=== PATIENT | male | born 1970 | race African-American/Black ===

== ENCOUNTER 2016-09-11 22:08 | Emergency (ER) | payer MEDICAID ==
[~2016-09-11] VITALS: Ht 170.2 cm; Wt 79.4 kg
[~2016-09-11 22:08] MED LIST: ACYCLOVIR400 MG PO; ALPRAZOLAM0.5 MG PO; APAP/BUTALBITAL1 TA1 PO; CIPRO 500MG TA500 MG PO; CLARITIN10 MG PO; FLONASE 50 MCG16 GM; KEFLEX 500MG.500 MG PO; LISINOPRIL 20MG20 MG PO; LISINOPRIL30 MG PO; LORTAB 5/500 501 TAB PO; MONTELUKAST SOD10 MG PO; MOTRIN600 MG PO; NAPROSYN 375MG375 MG PO; PERCOCET 10 MG1 EACH PO; PREDNISONE 20MG20 MG PO; PREVACID 30MG C30 M1 OR; SEPTRA DS 800 M1 TAB PO; SULFAMETHOXAZOL1 TA6 PO; TESSALON PERLE100 MG PO; VIBRA-TABS100 MG PO; VIBRAMYCIN 100100 MG PO; VICODIN 5/500 T1 TAB PO; VOLTAREN75 MG PO; ZITHROMAX Z PA250 MG PO; ZOFRAN4 MG PO
--- OUTSIDE RECORDS SUMMARY | 2016-09-11 22:30 | External Medical Summary Rpt ---
Author Author , Organization [employer] Address Unknown Phone Unavailable Care Team Providers Care Military Cook Name Role Phone MANNING VINCE, MANNING Unavailable Unavailable VINCE ARNOLD, ARNOLD Unavailable Unavailable ARNOLD, ARNOLD Unavailable Unavailable ARNOLD JEAN, ARNOLD Unavailable Unavailable JEAN ARNOLD JEAN, ARNOLD Unavailable Unavailable JEAN BEINEKE OSITO, BEINEKE Unavailable Unavailable OSITO DICKENS TER, DICKENS TER Unavailable Unavailable [facility], Unavailable Unavailable [facility] Un[facility] Unavailable [place], [facility] Unavailable Unavailable [place], [facility] BLANCA RUTH, BLANCA Unavailable Unavailable JR RUTH CAMILA HUMBLE, Unavailable Unavailable CAMILA HUMBLE YOVANA, YOVANA Unavailable Unavailable YOVANA JADE, YOVANA Unavailable Unavailable [facility] Un[facility] Un[facility], [facility] Unavailable Unavailable HOSPITAL P, [facility], Unavailable Unavailable [facility] CHYNA JETT, CHYNA JOHNIE Unavailable Unavailable [facility] MENDEZ KYRA, MENDEZ Unavailable Unavailable [facility] KATLIN JR, KATLIN JR Unavailable Unavailable KATLIN JR DWI, KATLIN Unavailable Unavailable JR DWI Osmar Polk MD, Unavailable Unavailable Osmar CLARKE, DAWSON Unavailable Unavailable [facility] Unavailable Unavailable SERVICES, [facility], Un[facility]available [facility], [facility] SCHULSTAD CAM, Unavailable Unavailable [facility] COURTNEY, COURTNEY Unavailable Unavailable [facility] RAFAT IV ALL, Unavailable Unavailable [facility] ALL Purpose Continuity of Care Document - 03-09-2012 through 2016 Problems Code Diagnosis DOS Provider Status R000 TACHYCARDIA 05-20-2016 [facility] UNSPECIFIED INC R002 PALPITATION 05-20-2016 [facility] S [facility] GROUP R079 CHEST PAIN 05-20-2016 [facility] UNSPECIFIED PHYSICIANS GROUP I340 NONRHEUMATI 05-19-2016 [facility] INSUFFICIEN CY I361 NONRHEUMATI 05-19-2016 [facility] TRICUS[facility] INSUFFICIEN CY I371 NONRHEUMATI 05-19-2016 [facility] PULMONARY [facility] INSUFFICIEN CY J069 ACUTE UPPER 05-15-2016 [facility] RESPIRATORY INFECTION UNSPECIFIED M545 LOW BACK 05-15-2016 [facility] PAIN K39778 OTHER LONG 05-14-2016 [facility] CURRENT [place] DRUG THERAPY I10 ESSENTIAL 04-29-2016 [facility] PRIMARY PHYSICIANS HYPERTENSIO GROUP N I119 HYPERTENSIV 04-29-2016 [facility] DISEASE INC WITHOUT HEART FAILURE I209 ANGINA 04-29-2016 [facility] PECTORIS PHYSICIANS UNSPECIFIED GROUP Z8249 FAMILY HX 04-29-2016 [facility] ISCHEMIC PHYSICIANS HRT DZ OTH GROUP DZ CIRC SYSTEM B0089 OTHER 10-11-2015 [facility] P Z302 ENCOUNTER 10-11-2015 [facility] P ON [id number] PAIN IN 06-06-2015 ARNOLD JEAN UNSPECIFIED SHOULDER N6489 OTHER 05-15-2015 [facility] SPECIFIED PHYSICIANS DISORDERS GROUP OF BREAST J209 ACUTE 05-11-2015 [facility] UNSPECIFIED INC J40 BRONCHITIS 05-11-2015 [facility] SPE[facility]IED [facility] ACUTE OR CHRONIC E559 VITAMIN D 05-07-2015 [facility]IENC[facility] PHYSICIANS UNSPECIFIED LA Z0000 ENCOUNTER 05-07-2015 [facility] ADULT [facility]IC[facility] MED EXAM LA W/O ABNORMAL FIND N61 INFLAMMATOR 05-05-2015 ARNOLD JEAN Y DISORDERS OF BREAST R0789 OTHER CHEST 05-02-2015 [facility] L089 LOCAL INF 04-20-2015 ARNOLD JEAN THE SKIN & SUBCUTANEOU S TISSUE UNS 470 DEVIATED 02-05-2015 [facility] NASAL PHYSICIANS SEPTUM GROUP 4739 UNSPECIFIED 02-05-2015 [facility] SINUSITIS PHYSICIANS GROUP 4779 ALLERGIC 02-05-2015 [facility] RHINITIS PHYSICIANS CAUSE GROUP UNSPECIFIED 4730 CHRONIC 01-08-2015 [facility] MAXILLARY PHYSICIANS SINUSITIS GROUP 7840 HEADACHE 01-08-2015 [facility] PHYSICIANS GROUP 67443 OTHER 12-04-2014 [facility] DISEASES OF PHYSICIANS NASAL GROUP CAVITY AND SINUSES 4019 UNSPECIFIED 12-01-2014 [facility]ENTIAL [facility] [place] N 66755 UNSPECIFIED 12-01-2014 [facility]POR[facility] IBULAR JOINT DISORDERS 5259 UNSPECIFIED 12-01-2014 [facility] TEETH&SUPPO INC RTING STRUCTURES V5869 LONG-TERM 10-31-2014 [facility] (CURRENT) PHYSICIANS USE OF LA OTHER MEDICATIONS 7862 COUGH 06-14-2014 [facility] 47979 HEMOPTYSIS 06-14-2014 [facility]PEC[facility]GENCY PHYS 486 PNEUMONIA, 06-13-2014 [facility] UNSPECIFIED INC 4139 OTHER AND 06-08-2014 [facility] UNSPECIFIED [facility] PECTORIS 4871 INFLUENZA 05-03-2014 [facility] WITH OTHER [facility] RESPIRATORY [facility] P MANIFESTATI ONS 78503 FEVER 05-03-2014 [facility] 4659 ACUTE URIS 05-02-2014 ALEXA PENA OF UNSPECIFIED SITE 401.9 401.9 04-01-2013 [facility] 511.0 511.0 04-01-2013 [place] [facility] W/O [facility] OR TB 462 ACUTE 03-09-2012 [facility] Allergies, Adverse Reactions, Alerts Type Allergy to substance Drug Allergy Adverse Reaction to Substance Substance Reaction Severity INGREDIENT: NO KNOWN Unknown Unknown - NO KNOWN DRUG ALLERGY No Known Allergies - Unknown Mild Nka Medications Na ND Rx Da Fi Fi Am Da Di Ph RX Ph St me C No te ll ll ou ys ag ar # ys at rm s nt no ma ic us Or Da si cy ia de te s n re d LI 00 03 04 30 30 00 HO Ac SI 59 -2 -2 .0 00 ME ti NO 10 2- 1- 00 06 TO ve AZ 88 20 20 07 WN IL 50 17 17 34 1 66 PH 30 AR MA MG CY TA OF BL ET CY NT HI AN A AM 00 03 04 30 10 00 HO Ac OX 78 -2 -2 .0 00 ME ti IC 12 2- 1- 00 06 TO ve IL 61 20 20 08 WN LI 30 17 17 37 N 5 02 PH 50 AR 0 MA MG CY CA OF PS UL CY E NT HI AN A NE 61 03 04 10 10 00 HO Ac OM 31 -2 -2 .0 00 ME ti YC 40 2- 1- 00 06 TO ve IN 64 20 20 08 WN -P 61 17 17 37 OL 0 03 PH YM AR YX MA IN CY -H C OF EA R CY SO NT LN HI AN A FL 68 03 04 3. 3 00 HO Ac UC 00 -1 -1 00 00 ME ti ON 10 4- 4- 0 06 TO ve AZ 25 20 20 08 WN OL 20 17 17 32 E 4 27 PH 10 AR 0 MA MG CY TA OF BL ET CY NT HI AN A FL 50 03 04 16 30 00 HO Ac UT 38 -1 -1 .0 00 ME ti IC 30 4- 4- 00 06 TO ve 70 20 20 07 WN ON 01 17 17 00 E 6 05 PH AZ AR OP MA CY 50 OF MC G CY SP NT RA HI Y AN A AL 59 03 04 12 30 00 HO Ac AZ 76 -0 -0 0. 00 ME ti AZ 23 2- 7- 00 04 TO ve OL 72 20 20 0 02 WN AM 20 17 17 09 2 3 15 PH AR MG MA CY TA BL OF ET CY NT HI AN A LI 00 02 03 30 30 00 HO Ac SI 59 -2 -2 .0 00 ME ti NO 10 0- 4- 00 06 TO ve AZ 88 20 20 07 WN IL 50 17 17 34 1 66 PH 30 AR MA MG CY TA OF BL ET CY NT HI AN A AZ 00 02 03 21 6 00 HO Ac ED 60 -0 -1 .0 00 ME ti NI 35 9- 7- 00 06 TO ve SO 33 20 20 08 WN NE 71 17 17 11 5 5 40 PH AR MG MA CY TA BL OF ET CY NT HI AN A AL 59 02 03 12 30 00 HO Ac AZ 76 -0 -1 0. 00 ME ti AZ 23 2- 0- 00 04 TO ve OL 72 20 20 0 02 WN AM 20 17 17 09 2 3 15 PH AR MG MA CY TA BL OF ET CY NT HI AN A FL 50 02 03 16 30 00 HO Ac UT 38 -0 -1 .0 00 ME ti IC 30 2- 0- 00 06 TO ve 70 20 20 07 WN ON 01 17 17 00 E 6 05 PH AZ AR OP MA CY 50 OF MC G CY SP NT RA HI Y AN A AL 59 01 02 12 30 00 HO Ac AZ 76 -0 -1 0. 00 ME ti AZ 23 5- 0- 00 04 TO ve OL 72 20 20 0 02 WN AM 20 17 17 09 2 3 15 PH AR MG MA CY TA BL OF ET CY NT HI AN A CY 00 01 02 90 30 00 HO Ac CL 60 -0 -1 .0 00 ME ti OB 33 5- 0- 00 06 TO ve EN 07 20 20 07 WN ZA 93 17 17 89 AZ 2 30 PH IN AR E MA 10 CY MG OF TA CY BL NT ET HI AN A AM 00 01 02 30 10 00 HO Ac OX 78 -0 -1 .0 00 ME ti IC 12 5- 0- 00 06 TO ve IL 61 20 20 07 WN LI 30 17 17 89 N 5 31 PH 50 AR 0 MA MG CY CA OF PS UL CY E NT HI AN A LI 00 12 01 30 30 00 HO Ac SI 59 -2 -2 .0 00 ME ti NO 10 6- 7- 00 06 TO ve AZ 88 20 20 07 WN IL 50 16 17 34 1 66 PH 30 AR MA MG CY TA OF BL ET CY NT HI AN A AZ 68 12 01 6. 5 00 HO Ac IT 18 -1 -2 00 00 ME ti HR 00 5- 0- 0 06 TO ve OM 16 20 20 07 WN YC 01 16 17 77 IN 3 40 PH AR 25 MA 0 CY MG OF TA BL CY ET NT HI AN A FL 50 12 01 16 30 00 HO Ac UT 38 -2 -2 .0 00 ME ti IC 30 1- 0- 00 06 TO ve 70 20 20 07 WN ON 01 16 17 00 E 6 05 PH AZ AR OP MA CY 50 OF MC G CY SP NT RA HI Y AN A MO 68 12 01 30 30 00 HO Ac NT 00 -2 -2 .0 00 ME ti EL 10 1- 0- 00 06 TO ve UK 24 20 20 07 WN 80 16 17 00 T 3 04 PH SO AR D MA 10 CY MG OF TA CY BL NT ET HI AN A Sa 63 11 0 No li 80 -2 ne 70 2- Lo 10 20 ng Fl 07 13 er us 5 h Ac 10 ti ML ve Sy ri ng e Le 00 11 0 No vo 90 -2 fl 46 2- Lo ox 25 20 ng ac 06 13 er in 1 Ac 50 ti 0M ve G Ta bl et Results Labs Lab Lab Date Result Refere Interp Status Commen Order Detail nces retati t Range on URINALYSIS/COMPLETE (04-01-2013 00:30) URINE 11-22-2 YELLOW YELLOW complet COLOR 013 ed 00:30 URINE 11-22-2 CLEAR CLEAR complet APPEARA 013 ed NCE 00:30 URINE 11-22-2 NEGATIV NEG complet GLUCOSE 013 E ed - 00:30 DIPSTIC K URINE 11-22-2 NEGATIV NEG complet BILIRUB 013 E ed IN - 00:30 DIPSTIC K URINE 11-22-2 NEGATIV NEG complet KETONE 013 E mg/dL ed 00:30 URINE 11-22-2 1.025 1.005-1 complet SPECIFI 013 UNK .030 ed C 00:30 GRAVITY URINE 04-01-2 1+ NEG complet BLOOD 013 ed 00:30 URINE --2 6.0 UNK 5.0-8.5 complet PH 013 ed 00:30 URINE --2 NEGATIV NEG complet PROTEIN 013 E mg/dL ed - 00:30 DIPSTIC K URINE 11--2 0.2 NEG complet UROBILI 013 E.U./dL ed NOGEN - 00:30 DIPSTIC K URINE 04-01-2 NEGATIV NEG complet NITRATE 013 E ed - 00:30 DIPSTIC K URINE 04-01-2 NEGATIV NEG complet LEUK 013 E ed ESTERAS 00:30 E URINE 04-01-2 3-5 0 complet RBC 013 rbc/hpf ed 00:30 URINE 04-01-2 OCC O complet WBC 013 wbc/hpf ed 00:30 URINE --2 OCC OCC complet SQUAMOU 013 #/hpf ed S CELLS 00:30 URINE 04-01-2 TRACE O complet BACTERI 013 ed A 00:30 COMPREHENSIVE METABOLIC PANEL (04-01-2013 00:25) Glucose 04-01-2 105 74-106 complet 013 mg/dL ed Bld-mCn 00:25 c BUN 04-01-2 11 7-18 complet Bld-mCn 013 mg/dL ed c 00:25 Creat 04-01-2 1.2 0.8-1.3 complet SerPl-m 013 mg/dL ed Cnc 00:25 GFR/BSA 04-01-2 66 Greater complet .pred 013 ML/MIN than ed SerPl 00:25 60 Schwart z-vRate Sodium 04-01-2 141 136-145 complet SerPl-s 013 mmoL/L ed Cnc 00:25 Potassi 04-01-2 3.8 3.5-5.1 complet um 013 mmoL/L ed SerPl-s 00:25 Cnc Chlorid 11-22-2 99 98-107 complet e 013 mmoL/L ed SerPl-s 00:25 Cnc CO2 11-22-2 27 21.0-32 complet SerPl-s 013 mmoL/L .0 ed Cnc 00:25 Calcium 11-22-2 9.0 8.5-10. complet 013 mg/dL 1 ed SerPl-m 00:25 Cnc Prot -22-2 7.4 6.4-8.2 complet SerPl-m 013 gm/dL ed Cnc 00:25 Albumin 11-22-2 3.9 3.4-5.0 complet 013 gm/dL ed SerPl-m 00:25 Cnc Globuli 22-2 3.5 1.3-3.2 complet n 013 gm/dL ed Ser-mCn 00:25 c Albumin 22-2 1.1 UNK 1.1-1.8 complet /Glob 013 ed SerPl-m 00:25 Rto Bilirub 22-2 0.4 0.2-1.0 complet 013 mg/dL ed SerPl-m 00:25 Cnc AST 11-22-2 24 U/L 15-37 complet SerPl-c 013 ed Cnc 00:25 ALT -22-2 64 U/L 30-65 complet SerPl-c 013 ed Cnc 00:25 ALP 11-22-2 91 U/L 50-136 complet SerPl-c 013 ed Cnc 00:25 CBC with AUTO DIFF (04-01-2013 00:25) WBC # 11-22-2 10.6 4.8-10. complet Bld 013 K/MM3 8 ed Auto 00:25 RBC # 11-22-2 4.86 4.6-6.2 complet Bld 013 M/mm3 ed Auto 00:25 Hgb -22-2 15.3 14.1-18 complet Bld-mCn 013 g/dL .0 ed c 00:25 Hct Fr 04-01-2 42.9 % 42.0-52 complet Bld 013 .0 ed 00:25 MCV RBC 22-2 88.4 fl 82.2-97 complet 013 .8 ed 00:25 MCH RBC 22-2 31.5 pg 27-31.2 complet Qn 013 ed Auto 00:25 MEAN 11-22-2 35.6 31.8-35 complet CORPUSC 013 g/dl .4 ed ULAR 00:25 HGB CONC RDW RBC 22-2 14.5 % 11.5-17 complet Auto 013 .5 ed 00:25 Platele 11-22-2 238 142-424 complet t Bld 013 K/mm3 ed Ql 00:25 Manual MEAN 1122-2 8.4 fl 7.4-10. complet PLATELE 013 4 ed T 00:25 VOLUME Granulo 11-22-2 46.0 % 37.0-80 complet cytes 013 .0 ed Fr Bld 00:25 Auto LYMPH % 11-22-2 47.7 % 10-50 complet 013 ed 00:25 Monocyt 11-22-2 4.8 % 1.7-9.3 complet es Fr 013 ed Bld 00:25 Auto Eosinop 11-22-2 1.0 % 0.1-12. complet hil Fr 013 0 ed Bld 00:25 Auto Basophi 11-22-2 0.5 % 0.1-2.0 complet ls Fr 013 ed Bld 00:25 Auto Granulo 11-22-2 4.9 1.3-8.0 complet cytes # 013 K/mm3 ed Bld 00:25 Auto Lymphoc 11-22-2 5.0 0.7-4.5 complet ytes Fr 013 K/mm3 ed Bld 00:25 Auto Monocyt 11-22-2 0.5 0.1-1.0 complet es # 013 K/mm3 ed Bld 00:25 Auto Eosinop 11-22-2 0.1 0.0-0.4 complet hil # 013 K/mm3 ed Bld 00:25 Auto Basophi 11-22-2 0.1 0-0.2 complet ls # 013 K/MM3 ed Bld 00:25 Auto Procedures Procedure DOS Code Location Performer Comment ECG 05733 [facility] ECG INC INC W/LEAST 12 LDS TRCG ONLY W/O I&[place] [address] [facility] THYROID 7 [facility] STIMULATI [place] [address] [facility] FREE 7 [facility] THYROXINE INC INC COLLECTIO 42549 [facility] N VENOUS 7 [facility] BLOOD INC INC VENIPUNCT URE CV STRS 94414 [facility] TST 7 [facility] XERS&/OR INC INC RX CONT ECG TRCG ONLY ECHO 28602 [facility] TTHRC R-T 7 [facility] 2D INC INC W/WOM-MOD E COMPL SPEC&COLR D DRUG TST G0477 COMBINED COMBINED PRESUMP;C 7 PHYSICIAN PHYSICIAN PBL BEING S LA S LA READ DC OPT OBV ONLY ECG 93897 [facility] ROUTINE 6 [facility] ECG INC INC W/LEAST 12 LDS TRCG ONLY W/O I&R ECG 33361 [facility] ROUTINE 6 [facility] ECG INC INC W/LEAST 12 LDS TRCG ONLY W/O I&R CREATINE 26571 [facility] KINASE 6 [facility] TOTAL INC INC ECG 53088 [facility] DALAL JR ROUTINE 6 [facility] W/LEAST P 12 LDS I&R ONLY RADIOLOGI 16914 [facility] C EXAM 6 [facility] CHEST 2 INC INC VIEWS FRONTAL&L ATERAL BLOOD 88068 [facility] COUNT 6 [facility] COMPLETE INC INC AUTO&[place] [address] [facility] TROPONIN 6 [facility] QUANTITAT INC INC [place] CREATINE 90775 [facility] KINASE MB 6 [facility] FRACTION INC INC ONLY COMPREHEN 20914 [facility] SIVE 6 [facility] METABOLIC INC INC PANEL DRUG TST G0477 COMBINED COMBINED PRESUMP;C 6 PHYSICIAN PHYSICIAN PBL BEING S LA S LA READ DC OPT OBV ONLY DRUG SCR G0434 COMBINED COMBINED NOT 6 PHYSICIAN PHYSICIAN CHROMATOG S LA S LA RAPHIC; ANY NUMBER PT ENC INJ J0702 ALEXA LIU BETAMETHA 6 JEAN JEAN SONE ACETATE & PHOSPHATE 3 MG IAADI 58819 [facility] INFFLUENZ 6 [facility] A A VIRUS INC INC IAADI 21815 [facility] INFLUENZA 6 [facility] B VIRUS INC INC LIPID 08179 COMBINED COMBINED PANEL 5 PHYSICIAN PHYSICIAN S LA S LA SEDIMENTA 37615 COMBINED COMBINED TION RATE 5 PHYSICIAN PHYSICIAN RBC S LA S LA NON-AUTOM ATED 25 36147 COMBINED COMBINED HYDROXY 5 PHYSICIAN PHYSICIAN INCLUDES S [place] [address] COMBINED COMBINED TRIIODOTH 5 PHYSICIAN PHYSICIAN YRONINE S LA S LA T3 TOTAL TT3 GENERAL 41417 COMBINED COMBINED HEALTH 5 PHYSICIAN PHYSICIAN PANEL S LA S LA DRUG SCR G0434 COMBINED COMBINED NOT 5 PHYSICIAN PHYSICIAN CHROMATOG S LA S LA RAPHIC; ANY NUMBER PT ENC COLLECTIO 67105 COMBINED COMBINED N VENOUS 5 PHYSICIAN PHYSICIAN BLOOD [place] [address] COMBINED COMBINED FREE 5 PHYSICIAN PHYSICIAN THYROXINE S LA S LA CREATINE 76303 [facility] KINASE MB 5 [facility] FRACTION INC INC ONLY COMPREHEN 97801 [facility] SIVE 5 [facility] METABOLIC INC INC PANEL ECG 00868 [facility] DALAL JR ROUTINE 5 [facility] W/LEAST P 12 LDS I&R ONLY BLOOD 74911 [facility] COUNT 5 [facility] COMPLETE INC INC AUTO&[place] [address] [facility] TROPONIN 5 [facility] QUANTITAT INC INC [facility] RADIOLOGI 24203 [facility] C EXAM 5 MEDICAL OSITO CHEST 2 IMAGING VIEWS ASS FRONTAL&L ATERAL CREATINE 10056 [facility] KINASE 5 [facility] TOTAL INC INC ECG 76370 [facility] ROUTINE 5 [facility] ECG INC INC W/LEAST 12 LDS TRCG ONLY W/O I&[place] [address] [facility] MAXILLOFA 5 [facility] CIAL W/O INC INC CONTRAST MATERIAL THERAPEUT 07487 [facility] IC 5 [facility] PROPHYLAC INC INC TIC/DX INJECTION SUBQ/IM DRUG SCR G0434 COMBINED COMBINED NOT 5 PHYSICIAN PHYSICIAN CHROMATOG S LA S LA RAPHIC; ANY NUMBER PT ENC RADIOLOGI 29986 [facility] [place] [facility] C EXAM 5 RADIOLOGY LD IV ALL CHEST 2 VIEWS FRONTAL&L ATERAL RADIOLOGI 91825 [facility] C EXAM 5 [facility] CHEST 2 INC INC VIEWS FRONTAL&[place] [address] [facility] HEAD/BRAI 5 MEDICAL [facility] N W/[place] [address] [place] [facility] MAXILLOFA 5 MEDICAL [facility] CIAL W/O IMAGING CONTRAST ASS MATERIAL RADIOLOGI 31723 [place] BEINEKE C EXAM 4 MEDICAL OSITO CHEST 2 IMAGING VIEWS ASS FRONTAL&L ATERAL BASIC 50389 [facility] METABOLIC 4 [facility] [place] [address] [facility] INFUSION 4 [facility] THERAPY INC INC PROPHYLAX IS/DX EA HOUR IAADI 67355 [facility] INFFLUENZ 4 [facility] A A VIRUS INC INC IAADI 68656 [facility] INFLUENZA 4 [facility] B VIRUS INC INC BLOOD 85835 [facility]OS COUNT 4 [facility] COMPLETE INC INC AUTO&[place] [address] [facility] INFUSION 4 [facility] THERAPY/P INC INC ROPHYLAXI S /DX 1ST TO 1 HR COLLECTIO 38614 [facility] N VENOUS 4 [facility] BLOOD INC INC VENIPUNCT URE INJECTION J0696 ALEXA LIU 4 JEAN JEAN CEFTRIAXO NE SODIUM PER 250 MG DRUG SCR G0434 COMBINED COMBINED NOT 4 PHYSICIAN PHYSICIAN JENI NUNEZ; ANY NUMBER PT ENC Encounters Encounter Start End Date Code Location Performer Type Date HOSPITAL [facility] OUTPATIEN INC T OFFICE 49599 [facility] 7 7 PHYSICIAN T VISIT S GROUP 25 MINUTES [facility] FIORELLA Escalante 7 [facility] OUTPATIEN INC T OFFICE 71581 ALEXA LIU OUTCHEALEN 7 7 T VISIT 15 MINUTES HOSPITAL [facility] - 6 6 [facility] OUTPATIEN INC T OFFICE 01288 [facility] COURTNEY OUTPATIEN 6 6 PHYSICIAN T NEW 60 S GROUP MINUTES EMERGENCY 72231 [facility] POLK DEPT 6 6 PHYSICIAN VISIT S, PLLC HIGH SEVERITY& THREAT [facility] - 6 6 [facility] OUTPATIEN INC T EMERGENCY 14310 [facility] 6 6 [facility] DEPARTMEN INC T VISIT HIGH/URGE NT SEVERITY OFFICE 88407 [facility] RIOS JR OUTPATIEN [address] MINUTES P OFFICE 33083 JULIOCESARNORA GANDARANORA OUTPATIEN 6 6 JEAN JEAN T VISIT 15 MINUTES OFFICE 49977 [facility] KEISHASTMARNIE OUTPATIEN 6 6 PHYSICIAN CAM T NEW 30 S GROUP MINUTES HOSPITAL [facility] - 6 6 [facility] OUTPATIEN INC T EMERGENCY 52836 [facility] POLK 6 6 PHYSICIAN JADE DEPARTMEN S, PLLC T VISIT MODERATE SEVERITY EMERGENCY 13628 [facility] 6 6 [facility] DEPARTMEN INC T VISIT LIMITED/M INOR PROB OFFICE 33570 ALEXA BENTLEY 5 5 JEAN JEAN T VISIT 15 MINUTES EMERGENCY 16301 [facility] POLK DEPT 5 5 PHYSICIAN JADE VISIT S, PLLC HIGH SEVERITY& THREAT FUNCJ EMERGENCY 56597 [facility] 5 5 [facility] DEPARTMEN INC T VISIT MODERATE SEVERITY HOSPITAL [facility] - 5 5 [facility] OUTPATIEN INC T OFFICE 51045 ALEXA BENTLEY 5 5 JEAN JEAN T VISIT 15 MINUTES OFFICE 63972 [facility] HUANG OUTPATIEN 5 5 [facility] T VISIT HOSPITAL 15 MINUTES OFFICE 93954 [facility] MENDEZ OUTPATIEN 5 5 PHYSICIAN KYRA T VISIT S GROUP 15 MINUTES OFFICE 02443 [facility] MENDEZ OUTPATIEN 5 5 PHYSICIAN KYRA T VISIT S GROUP 15 MINUTES HOSPITAL [facility] - 5 5 [facility] OUTPATIEN INC T OFFICE 10978 [facility] MENDEZ OUTPATIEN 5 5 PHYSICIAN KYRA T VISIT S GROUP 15 MINUTES EMERGENCY 90326 [facility] OSMAN 5 5 PHYSICIAN [facility] S, PLLC T VISIT MODERATE SEVERITY EMERGENCY 78016 [facility] 5 5 [facility] DEPARTMEN INC T VISIT LOW/MODER SEVERITY HOSPITAL [facility] - 5 5 [facility] OUTPATIEN INC T OFFICE 75295 [facility] MENDEZ OUTPATIEN 5 5 PHYSICIAN KYRA T NEW 20 S GROUP MINUTES EMERGENCY 21297 [facility] 5 5 [facility] EMERGENCY T VISIT PHYS MODERATE SEVERITY HOSPITAL [facility] - 5 5 [facility] OUTPATIEN INC T EMERGENCY 63202 [facility] POLK 5 5 [facility] T VISIT P MODERATE SEVERITY HOSPITAL [facility] - 5 5 [facility] OUTPATIEN [facility] T EMERGENCY [id number] [facility] 5 5 [facility] DE[facility] T VISIT LOW/MODER SEVERITY HOSPITAL [facility] - 4 4 [facility] OUT[facility] T EMERGENCY [id number] [facility] MANNING 4 4 [facility] T VISIT P LOW/MODER SEVERITY EMERGENCY [id number] [facility] 4 4 [facility] T VISIT HIGH/URGE NT SEVERITY OFFICE [id number] ALEXA LIU OUTPATIEN 4 4 JEAN JEAN T VISIT 15 MINUTES Emergency KRISTIN Polk MD (ER) 3 00:55 3 01:10 [facility] EMERGENCY [id number] BRANDON POLK 2 2 EMERGENCY [facility] DEPARTMEN SERVICES T VISIT HIGH/URGE NT SEVERITY
--- OUTSIDE RECORDS SUMMARY | 2016-09-11 22:30 | External Medical Summary Rpt ---
Author Author , Organization [employer] Address Unknown Phone Unavailable Care Team Providers Care Aco Coordinator Name Role Phone MANNING VINCE, MANNING Unavailable Unavailable VINCE ARNOLD, ARNOLD Unavailable Unavailable ARNOLD, ARNOLD Unavailable Unavailable ARNOLD JEAN, ARNOLD Unavailable Unavailable JEAN ARNOLD JEAN, ARNOLD Unavailable Unavailable JAEN BEINEKE OSITO, BEINEKE Unavailable Unavailable OSITO DICKENS [...] Unavailable Unavailable INC, [facility] Unavailable Unavailable HOSPITAL P, [facility], Unavailable Unavailable [facility] CHYNA JETT, CHYNA JOHNIE Unavailable Unavailable [facility], [facility] MENDEZ KYRA, MENDEZ Unavailable Unavailable [facility] KATLIN JR, KATLIN JR Unavailable Unavailable KATLIN JR DWI, KATLIN Unavailable Unavailable JR DWI Osmar Polk MD, Unavailable Unavailable Osmar CLARKE, DAWSON Unavailable Unavailable [facility] Unavailable Unavailable SERVICES, [facility] Un[facility]available [facility], [facility] SCHULSTAD CAM, Unavailable Unavailable [facility] COURTNEY, COURTNEY Unavailable Unavailable [facility] RAFAT IV ALL, Unavailable Unavailable [facility] ALL Purpose Continuity of Care Document - 03-09-2012 through 2016 Problems Code Diagnosis DOS Provider Status R000 TACHYCARDIA 05-20-2016 [facility] R002 PALPITATION 05-20-2016 [facility] R079 CHEST PAIN 05-20-2016 [facility] UNSPECIFIED PHYSICIANS GROUP I340 NONRHEUMATI 05-19-2016 [facility] INSUFFICI[facility] CY I361 NONRHEUMATI 05-19-2016 [facility] TRICUS[facility] INSUFFICIEN CY I371 NONRHEUMATI 05-19-2016 [facility]MONARY [facility] INSUFFICIEN CY J069 ACUTE UPPER 05-15-2016 [facility] RESPIRATORY INFECTION UNSPECIFIED M545 LOW BACK 05-15-2016 [facility] PAIN [id number] OTHER LONG 05-14-2016 [facility] PHYSICIANS CURRENT [place] DRUG THERAPY I10 ESSENTIAL 04-29-2016 [facility] PRIMARY PHYS[facility]IANS HYPERTENSIO GROUP N I119 HYPERTENSIV 04-29-2016 [facility] DISEASE INC WITHOUT HEART FAILURE I209 ANGINA 04-29-2016 [facility] PECTORIS PHYSICIANS UNSPECIFIED GROUP Z8249 FAMILY HX 04-29-2016 [facility] ISCHEMIC PHYSICIANS HRT DZ OTH GROUP DZ CIRC SYSTEM B0089 OTHER 10-11-2015 [facility] P Z302 ENCOUNTER 10-11-2015 [facility] P ON [id number] PAIN IN 06-06-2015 [facility] JEAN UNSPECIFIED SHOULDER N6489 OTHER 05-15-2015 [facility] SPECIFIED PHYSICIANS DISORDERS GROUP OF BREAST J209 ACUTE 05-11-2015 [facility] UNSPECIFIED INC J40 BRONCHITIS [...] SUBCUTANEOU S TISSUE UNS 470 DEVIATED 02-05-2015 [facility] NASAL PHYSICIANS SEPTUM GROUP 4739 UNSPECIFIED 02-05-2015 [facility] SINUSITIS PHYSICIANS GROUP 4779 ALLERGIC 02-05-2015 [facility] RHINITIS PHYSICIANS CAUSE GROUP UNSPECIFIED 4730 CHRONIC 01-08-2015 [facility] MAXILLARY PHYSICIANS SINUSITIS GROUP 7840 HEADACHE 01-08-2015 [facility] 41937 OTHER 12-04-2014 [facility] DISEASES OF PHYSICIANS NASAL GROUP CAVITY AND SINUSES 4019 UNSPECIFIED 12-01-2014 [facility]ENTIAL [facility] HYPERTENSIO INC N 97368 UNSPECIFIED 12-01-2014 [facility] IBULAR JOINT DISORDERS 5259 UNSPECIFIED 12-01-2014 [facility] TEETH&SUPPO INC RTING STRUCTURES V5869 LONG-TERM 10-31-2014 [facility] (CURRENT) PHYSICIANS USE OF LA OTHER MEDICATIONS 7862 COUGH 06-14-2014 [facility] 24549 HEMOPTYSIS 06-14-2014 [facility]PEC[facility]Y PHYS 486 PNEUMONIA, 06-13-2014 [facility] UNSPECIFIED INC 4139 OTHER AND 06-08-2014 [facility] UNSPECIFIED [facility] PECTORIS 4871 INFLUENZA 05-03-2014 [facility] WITH OTHER [facility] RESPIRATORY [facility] P MANIFESTATI ONS 20766 FEVER 05-03-2014 [facility] 4659 ACUTE URIS 05-02-2014 ALEXA PENA OF UNSPECIFIED SITE 401.9 401.9 04-01-2013 [facility] 511.0 511.0 04-01-2013 [place] [facility] W/O [facility] OR TB 462 ACUTE 03-09-2012 [facility] Allergies, Adverse Reactions, Alerts [...] 10 2- 1- 00 06 TO ve SD 88 20 20 07 WN IL 50 [...] 17 17 00 E 6 05 PH SD AR OP MA CY 50 OF MC G CY SP NT RA HI Y AN A AL 59 03 04 12 30 00 HO Ac SD 76 -0 -0 0. 00 ME ti [...] 10 0- 4- 00 06 TO ve SD 88 20 20 07 WN IL 50 17 17 34 1 66 PH 30 AR MA MG CY TA OF BL ET CY NT HI AN A SD 00 02 03 21 6 00 HO Ac ED 60 -0 -1 .0 00 ME ti NI 35 9- 7- 00 06 TO ve SO 33 20 20 08 WN NE 71 17 17 11 5 5 40 PH AR MG MA CY TA BL OF ET CY NT HI AN A AL 59 02 03 12 30 00 HO Ac SD 76 -0 -1 0. 00 ME ti [...] 17 17 00 E 6 05 PH SD AR OP MA CY 50 OF MC G CY SP NT RA HI Y AN A AL 59 01 02 12 30 00 HO Ac SD 76 -0 -1 0. 00 ME ti [...] 07 WN ZA 93 17 17 89 SD 2 30 PH IN AR E MA [...] 10 6- 7- 00 06 TO ve SD 88 20 20 07 WN IL 50 [...] 16 17 00 E 6 05 PH SD AR OP MA CY 50 OF MC [...] Procedure DOS Code Location Performer Comment ECG 05909 [facility] ROUTINE 7 [facility] ECG INC INC W/LEAST 12 LDS TRCG ONLY W/O I&[place] [address] [facility] THYROID 7 [facility] STIMULATI [place] [address] [facility] FREE 7 [facility] THYROXINE INC INC COLLECTIO 73405 [facility] N VENOUS 7 [facility] BLOOD INC INC VENIPUNCT URE CV STRS 77899 [facility] TST 7 [facility] XERS&/OR INC INC RX CONT ECG TRCG ONLY ECHO 26153 [facility] TTHRC R-T 7 [facility] 2D INC INC W/WOM-MOD E COMPL SPEC&COLR D DRUG TST G0477 COMBINED COMBINED PRESUMP;C 7 PHYSICIAN PHYSICIAN PBL BEING S LA S LA READ DC OPT OBV ONLY ECG 03567 [facility] ROUTINE 6 [facility] ECG INC INC W/LEAST 12 LDS TRCG ONLY W/O I&R ECG 84031 [facility] ROUTINE 6 [facility] ECG INC INC W/LEAST 12 LDS TRCG ONLY W/O I&R CREATINE 33814 [facility] KINASE 6 [facility] TOTAL INC INC ECG 64480 [facility] DALAL JR ROUTINE 6 [facility] W/LEAST P 12 LDS I&R ONLY RADIOLOGI 17045 [facility] C EXAM 6 [facility] CHEST 2 INC INC VIEWS FRONTAL&L ATERAL BLOOD 42760 [facility] COUNT 6 [facility] COMPLETE INC INC AUTO&[place] [address] [facility] TROPONIN 6 [facility] QUANTITAT INC INC [place] CREATINE 35372 [facility] KINASE MB 6 [facility] FRACTION INC INC ONLY COMPREHEN 92511 [facility] SIVE 6 MEM HOSP MEM [...] SONE ACETATE & PHOSPHATE 3 MG IAADI 26476 [facility] INFFLUENZ 6 [facility] A A VIRUS INC INC IAADI 59298 [facility] INFLUENZA 6 [facility] B VIRUS INC INC LIPID 56621 COMBINED COMBINED PANEL 5 PHYSICIAN PHYSICIAN S LA S LA SEDIMENTA 54821 COMBINED COMBINED TION RATE 5 PHYSICIAN PHYSICIAN RBC S LA S LA NON-AUTOM ATED 25 50340 COMBINED COMBINED HYDROXY 5 PHYSICIAN PHYSICIAN INCLUDES S [place] [address] COMBINED COMBINED TRIIODOTH 5 PHYSICIAN PHYSICIAN YRONINE S LA S LA T3 TOTAL TT3 GENERAL 90455 COMBINED COMBINED HEALTH 5 PHYSICIAN PHYSICIAN PANEL S LA S LA DRUG SCR G0434 COMBINED COMBINED NOT 5 PHYSICIAN PHYSICIAN CHROMATOG S LA S LA RAPHIC; ANY NUMBER PT ENC COLLECTIO 04907 COMBINED COMBINED N VENOUS 5 PHYSICIAN PHYSICIAN [place]LOOD [place] [address] COMBINED COMBINED FREE 5 PHYSICIAN PHYSICIAN THYROXINE S LA S LA CREATINE 57816 [facility] KINASE MB 5 [facility] FRACTION INC INC ONLY COMPREHEN 19383 [facility] SIVE 5 [facility] METABOLIC INC INC PANEL ECG 73134 [facility] DALAL JR ROUTINE [address] [facility] W/LEAST P 12 LDS I&R ONLY BLOOD 91191 [facility] COUNT 5 [facility] COMPLETE INC INC AUTO&[place] [address] [facility] TROPONIN 5 [facility] QUANTITAT INC INC [place] RADIOLOGI 43775 [facility] C EXAM 5 MEDICAL OSITO CHEST 2 IMAGING VIEWS ASS FRONTAL&L ATERAL CREATINE 55863 [facility] KINASE 5 [facility] TOTAL INC INC ECG 35890 [facility] ABRROS ROUTINE 5 [facility] ECG INC INC W/LEAST 12 LDS TRCG ONLY W/O I&[place] [address] [facility] MAXILLOFA 5 [facility] CIAL W/O INC INC CONTRAST MATERIAL THERAPEUT 00781 [facility] IC 5 [facility] PROPHYLAC INC INC TIC/DX INJECTION SUBQ/IM DRUG SCR G0434 COMBINED COMBINED NOT 5 PHYSICIAN PHYSICIAN CHROMATOG S LA S LA RAPHIC; ANY NUMBER PT ENC RADIOLOGI 04383 [facility] [place] NKECHI C EXAM 5 RADIOLOGY LD IV ALL CHEST 2 VIEWS FRONTAL&L ATERAL RADIOLOGI 70545 [facility] C EXAM 5 [facility] CHEST 2 INC INC VIEWS FRONTAL&[place] [address] [facility] HEAD/BRAI 5 MEDICAL HUMBLE N W/[place] [address] [facility] [place] CAMILA MAXILLOFA 5 MEDICAL HUMBLE CIAL W/O IMAGING CONTRAST ASS MATERIAL RADIOLOGI 96776 [facility] BEINE[facility] C EXAM 4 MEDICAL OSITO CHEST 2 IMAGING VIEWS ASS FRONTAL&L ATERAL BASIC 87352 [facility] METABOLIC 4 [facility] [place] [address] [facility] INFUSION 4 [facility] THERAPY INC INC PROPHYLAX IS/DX EA HOUR IAADI 76631 [facility] INFFLUENZ 4 [facility] A A VIRUS INC INC IAADI 71497 [facility] INFLUENZA 4 [facility] B VIRUS INC INC BLOOD 78067 [facility] COUNT 4 [facility] COMPLETE INC INC AUTO&[place] [address] [facility] INFUSION 4 [facility] THERAPY/P INC INC ROPHYLAXI S /DX 1ST TO 1 HR COLLECTIO 98107 [facility] N VENOUS 4 [facility] BLOOD INC INC VENIPUNCT URE INJECTION J0696 ALEXA LIU 4 JEAN JEAN CEFTRIAXO NE SODIUM PER 250 MG DRUG SCR G0434 COMBINED COMBINED NOT 4 PHYSICIAN PHYSICIAN JENI NUNEZ; ANY NUMBER PT ENC Encounters Encounter Start End Date Code Location Performer Type Date HOSPITAL [facility] OUTPATIEN INC T OFFICE 83380 [facility] 7 7 PHYSICIAN T VISIT S GROUP 25 MINUTES [facility] Escalante 7 [facility] OUTPATIEN INC T OFFICE 74855 A[facility] LIU OUTCHELAEN 7 7 T VISIT 15 MINUTES HOSPITAL [facility] - 6 6 [facility] OUTPATIEN INC T OFFICE 21459 [facility] COURTNEY OUTPATIEN 6 6 PHYSICIAN T NEW 60 S GROUP MINUTES EMERGENCY 21596 [facility] DEPT 6 6 PHYSICIAN VISIT S, PLLC HIGH SEVERITY& THREAT [facility] - 6 6 [facility] OUTPATIEN INC T EMERGENCY 59668 [facility] 6 6 [facility] DEPARTMEN INC T VISIT HIGH/URGE NT SEVERITY OFFICE 84986 [facility] RIOS JR OUTPATIEN [address] MINUTES P OFFICE 34519 [facility]ARN[facility] GANDARANORA OUTPATIEN 6 6 JEAN JEAN T VISIT [address]ES [address] [facility] KEISHASTMARNIE OUTPATIEN 6 6 PHYSICIAN CAM T NEW 30 S GROUP MINUTES HOSPITAL [facility] - 6 6 [facility] OUTPATIEN INC T EMERGENCY 86215 [facility] 6 6 PHYSICIAN JADE DEPARTMEN S, PLLC T VISIT MODERATE SEVERITY EMERGENCY 80801 [facility] 6 6 [facility] DEPARTMEN INC T VISIT LIMITED/M INOR PROB OFFICE 84250 A[facility] BENTLEY 5 5 JEAN JEAN T VISIT 15 MINUTES EMERGENCY 66931 [facility] DEPT 5 5 PHYSICIAN JADE VISIT S, PLLC HIGH SEVERITY& THREAT FUNCJ EMERGENCY 80961 [facility] 5 5 [facility] DEPARTMEN INC T VISIT MODERATE SEVERITY HOSPITAL [facility] - 5 5 [facility] OUTPATIEN INC T OFFICE 04761 ALEXA BENTLEY 5 5 JEAN JEAN T VISIT 15 MINUTES OFFICE 47536 [facility] HUANG OUTPATIEN 5 5 [facility] T VISIT HOSPITAL [address] [facility] MENDEZ OUTPATIEN 5 5 PHYSICIAN KYRA T VISIT S GROUP [address]ES [address] [facility] MENDEZ OUTPATIEN 5 5 PHYSICIAN KYRA T VISIT S GROUP 15 MINUTES HOSPITAL [facility] - 5 5 [facility] OUTPATIEN INC T OFFICE 63257 [facility] MENDEZ OUTPATIEN 5 5 PHYSICIAN KYRA T VISIT S GROUP 15 MINUTES EMERGENCY 98514 [facility] OSMAN 5 5 PHYSICIAN [facility] S, PLLC T VISIT MODERATE SEVERITY EMERGENCY 25808 [facility] 5 5 [facility] DEPARTMEN INC T VISIT LOW/MODER SEVERITY HOSPITAL [facility] - 5 5 [facility] OUTPATIEN INC T OFFICE 95317 [facility] MENDEZ OUTPATIEN 5 5 PHYSICIAN KYRA T NEW 20 S GROUP MINUTES EMERGENCY 58813 [facility] 5 5 [facility] EMERGENCY T VISIT PHYS MODERATE SEVERITY HOSPITAL [facility] - 5 5 [facility] OUTPATIEN INC T EMERGENCY 52307 [facility] POLK 5 5 [facility] T VISIT P MODERATE SEVERITY HOSPITAL [facility] - 5 5 [facility] OUTPATIEN INC T EMERGENCY 23332 [facility] 5 5 [facility] DEPARTMEN INC T VISIT LOW/MODER SEVERITY HOSPITAL [facility] - 4 4 [facility] OUTPATIEN INC T EMERGENCY 00402 [facility] MANNING 4 4 [facility] T VISIT P LOW/MODER SEVERITY EMERGENCY 57421 [facility] 4 4 [facility] DEPARTMEN INC T VISIT HIGH/URGE NT SEVERITY OFFICE 63035 ALEXA LIU OUTPATIEN 4 4 JEAN JEAN T VISIT 15 MINUTES Emergency KRISTIN Polk MD (ER) 3 00:55 3 01:10 [facility] EMERGENCY 74273 BRANDON POLK 2 2 EMERGENCY [facility] DEPARTMEN SERVICES T VISIT HIGH/URGE NT SEVERITY
--- OUTSIDE RECORDS SUMMARY | 2016-09-11 22:32 | External Medical Summary Rpt ---
Demographics Preferred Language Khmer Marital Status Unknown Mandaeism Affiliation Unknown Race Unknown Ethnic Group Unknown Author Author , Organization [employer] Address Unknown Phone Unavailable Purpose Continuity of Care Document - through 2016 Immunization No patient found.
--- OUTSIDE RECORDS SUMMARY | 2016-09-11 22:32 | External Medical Summary Rpt ---
Demographics Preferred Language Pashto Marital Status Unknown Amish Affiliation Unknown Race Unknown Ethnic Group Unknown Author Author , Organization [employer] Address Unknown Phone Unavailable Purpose Continuity of Care Document - through 2016 Immunization No patient found.
--- OUTSIDE RECORDS SUMMARY | 2016-09-11 22:32 | External Medical Summary Rpt ---
Author Author , Organization [employer] Address Unknown Phone Unavailable Care Team Providers Care Director Of Career Resources Name Role Phone MANNING VINCE, MANNING Unavailable Unavailable VINCE ARNOLD, ARNOLD Unavailable Unavailable ARNOLD, ARNOLD Unavailable Unavailable ARNOLD JEAN, ARNOLD Unavailable Unavailable JEAN ARNOLD JEAN, ARNOLD Unavailable Unavailable JEAN DICKENS TER, DICKENS TER Unavailable Unavailable ALEXANDER, ALEXANDER Unavailable Unavailable ALEXANDER ALL, ALEXANDER ALL Unavailable Unavailable [facility], Unavailable Unavailable [facility]available [facility], [facility] Unavailable Unavailable [facility], [facility] BLANCA JR RUTH, BLANCA Unavailable Unavailable JR RUTH CAMILA HUMBLE, Unavailable Unavailable CAMILA HUMBLE YOVANA, YOVANA Unavailable Unavailable YOVANA JADE, YOVANA Unavailable Unavailable JADE [facility] Unavailable Unavailable INC, [facility] Unavailable Unavailable HOSPITAL P, [facility], Unavailable Unavailable [facility] CLEMENTE JOHNIE, CLEMENTE JOHNIE Unavailable Unavailable [facility], [facility] MENDEZ KYRA, MENDEZ Unavailable Unavailable KY[facility] KATLIN JR, KATLIN JR Unavailable Unavailable KATLIN JR DWI, KATLIN Unavailable Unavailable JR DWI DAWSON VINCE, DAWSON Unavailable Unavailable VINCE [facility] Unavailable Unavailable SERVICES, [facility], Un[facility]available [facility], [facility] SCHULSTAD CAM, Unavailable Unavailable [facility] COURTNEY, COURTNEY Unavailable Unavailable SANDOVAL, SANDOVAL Unavailable Unavailable [facility] Purpose Continuity of Care Document - 03-09-2012 through 2016 Problems Code Diagnosis DOS Provider Status R000 TACHYCARDIA 05-20-2016 [facility] UNSPECIF[facility] INC R002 PALPITATION 05-20-2016 [facility] S PHYS[facility]ANS GROUP R079 CHEST PAIN 05-20-2016 [facility] UNSPECIFIED PHYSICIANS GROUP I340 NONRHEUMATI 05-19-2016 [facility] INSUFFICIEN CY I361 NONRHEUMATI 05-19-2016 [facility] TRICUSPID [facility] INSUFFICIEN CY I371 NONRHEUMATI 05-19-2016 [facility]ARY [facility] INSUFFICIEN CY J069 ACUTE UPPER 05-15-2016 [facility] RESPIRATORY INFECTION UNSPECIFIED M545 LOW BACK 05-15-2016 AR[facility] PAIN [id number] OTHER LONG 05-14-2016 [facility] CURRENT [place] DRUG THERAPY I10 ESSENTIAL 04-29-2016 [facility] PRIMARY PHYSICIANS HYPERTENSIO GROUP N I119 HYPERTENSIV 04-29-2016 [facility] DISEASE INC WITHOUT HEART FAILURE I209 ANGINA 04-29-2016 [facility] PECTORIS PHYSICIANS UNSPECIFIED GROUP Z8249 FAMILY HX 04-29-2016 [facility] ISCHEMIC PHYSICIANS HRT DZ OTH GROUP DZ CIRC SYSTEM B0089 OTHER 10-11-2015 [facility] P Z302 ENCOUNTER 10-11-2015 [facility] P ON V03739 PAIN IN 06-06-2015 ALEXA JEAN UNSPECIFIED SHOULDER N6489 OTHER 05-15-2015 [facility] SPECIFIED PHYSICIANS DISORDERS GROUP OF BREAST J209 ACUTE 05-11-2015 [facility] UNSPECIFIED INC J40 BRONCHITIS 05-11-2015 [facility] SPECIFIED PLL[facility] ACUTE OR CHRONIC E559 VITAMIN D 05-07-2015 [facility]IANS UNSPECIFIED LA Z0000 ENCOUNTER 05-07-2015 [facility] ADULT [facility] MED EXAM LA W/O ABNORMAL FIND N61 INFLAMMATOR 05-05-2015 ALEXA JEAN Y DISORDERS OF BREAST R0789 OTHER CHEST 05-02-2015 [facility] L089 LOCAL INF 04-20-2015 ALEXA PENA THE SKIN & SUBCUTANEOU S TISSUE UNS 470 DEVIATED 02-05-2015 [facility] NASAL PHYSICIANS SEPTUM GROUP 4739 UNSPECIFIED 02-05-2015 [facility] SINUSITIS PHYSICIANS GROUP 4779 ALLERGIC 02-05-2015 [facility] RHINITIS PHYSICIANS CAUSE GROUP UNSPECIFIED 4730 CHRONIC 01-08-2015 [facility] MAXILLARY PHYSICIANS SINUSITIS GROUP 7840 HEADACHE 01-08-2015 [facility] PHYSICIANS GROUP 71812 OTHER 12-04-2014 [facility] DISEASES OF PHYSICIANS NASAL GROUP CAVITY AND SINUSES 4019 UNSPECIFIED 12-01-2014 [facility] ESSENTIAL [facility] HYPERTENSIO INC N 34037 UNSPECIFIED 12-01-2014 [facility] TEMPOROM[facility] IBULAR JOINT DISORDERS 5259 UNSPECIFIED 12-01-2014 [facility]ORDER [facility] TEETH&SUPPO INC RTING STRUCTURES V5869 LONG-TERM 10-31-2014 [facility] (CURRENT) [facility]ICIANS USE OF LA OTHER MEDICATIONS 7862 COUGH 06-14-2014 [facility] 30578 HEMOPTYSIS 06-14-2014 [facility]PEC[facility] N [facility]ERGENCY PHYS 486 PNEUMONIA, 06-13-2014 [facility]ISM [facility] UNSPECIFIED INC 4139 OTHER AND 06-08-2014 [facility] UNSPECIFIED [facility] P PECTORIS 4871 INFLUENZA 05-03-2014 [facility] WITH OTHER [facility] P MANIFESTATI ONS 10140 FEVER 05-03-2014 [facility] 4659 ACUTE URIS 05-02-2014 ALEXA JEAN OF UNSPECIFIED SITE 462 ACUTE 03-09-2012 [facility] Medications Na ND Rx Da Fi Fi [...] CY BL NT ET HI AN A Procedures Procedure DOS Code Location Performer Comment COLLECTIO 39193 [facility] N VENOUS 7 [facility] [place] [address] [facility] FREE 7 [facility] [place] [address] [facility] THYROID 7 [facility] STIMULATI INC INC NG HORMONE TSH ECG 54006 [facility] ROUTINE 7 [facility] ECG INC INC W/LEAST 12 LDS TRCG ONLY W/O I&R CV STRS 46268 [facility] TST 7 [facility] XERS&/OR INC INC RX CONT ECG TRCG ONLY ECHO 23299 MARIA ALEJANDRA SANDOVAL TTHRC R-T 7 MEDICAL 2D SERV W/WOM-MOD FOUNDATIO E COMPL N SPEC&COLR D DRUG TST G0477 COMBINED COMBINED PRESUMP;C 7 PHYSICIAN PHYSICIAN PBL BEING S LA S LA READ DC OPT OBV ONLY ECG 15945 [facility] ROUTINE 6 [facility] ECG INC INC W/LEAST 12 LDS TRCG ONLY W/O I&R COMPREHEN 32563 [facility] SIVE 6 [facility] METABOLIC INC INC PANEL CREATINE 22845 [facility] KINASE MB 6 [facility] FRACTION INC INC ONLY CREATINE 86897 [facility] KINASE 6 [facility] TOTAL INC INC ECG 46728 [facility] ROUTINE 6 [facility] ECG INC INC W/LEAST 12 LDS TRCG ONLY W/O I&[place] [address] [facility] TROPONIN 6 [facility] QUANTITAT INC INC CHENTE BLOOD 31191 [facility] COUNT 6 [facility] COMPLETE INC INC AUTO&AUTO DIFRNTL WBC RADIOLOGI 10422 [facility] C EXAM 6 MEDICAL CHEST 2 IMAGING VIEWS ASS FRONTAL&L ATERAL ECG 29894 [facility] DALAL JR ROUTINE 6 [facility] W/LEAST P 12 LDS I&R ONLY DRUG TST G0477 COMBINED COMBINED PRESUMP;C 6 PHYSICIAN PHYSICIAN PBL BEING S LA S LA READ DC OPT OBV ONLY DRUG SCR G0434 COMBINED COMBINED NOT 6 PHYSICIAN PHYSICIAN CHROMATOG S LA S LA RAPHIC; ANY NUMBER PT ENC INJ J0702 ALEXA LIU BETAMETHA 6 JEAN JEAN SONE ACETATE & PHOSPHATE 3 MG IAADI 34506 [facility] INFLUENZA 6 [facility] B VIRUS INC INC IAADI 96769 [facility] INFFLUENZ 6 [facility] [place] [place] [address] COMBINED COMBINED FREE 5 PHYSICIAN PHYSICIAN THYROXINE S LA S LA COLLECTIO 12729 COMBINED COMBINED N VENOUS 5 PHYSICIAN PHYSICIAN BLOOD S LA S LA VENIPUNCT URE DRUG SCR G0434 COMBINED COMBINED NOT 5 PHYSICIAN PHYSICIAN CHROMATOG S LA S LA RAPHIC; ANY NUMBER PT ENC GENERAL 43719 COMBINED COMBINED HEALTH 5 PHYSICIAN [place] [address] COMBINED COMBINED TRIIODOTH 5 PHYSICIAN PHYSICIAN YRONINE S LA S LA T3 TOTAL TT3 25 29384 COMBINED COMBINED HYDROXY 5 PHYSICIAN PHYSICIAN INCLUDES S LA S LA FRACTIONS IF PERFORMED SEDIMENTA 47644 COMBINED COMBINED TION RATE 5 PHYSICIAN PHYSICIAN RBC S LA S LA NON-AUTOM ATED LIPID 59884 COMBINED COMBINED PANEL 5 PHYSICIAN PHYSICIAN S LA S LA ECG 08598 [facility] DALAL JR ROUTINE 5 [facility] W/LEAST P 12 LDS I&[place] [address] [facility] TROPONIN 5 [facility] QUANTITAT INC INC CHENTE CREATINE 88030 [facility] KINASE 5 [facility] TOTAL INC INC ECG 55698 [facility] ROUTINE 5 [facility] ECG INC INC W/LEAST 12 LDS TRCG ONLY W/O I&R COMPREHEN 34487 [facility] SIVE 5 [facility] METABOLIC INC INC PANEL CREATINE 18118 [facility] KINASE MB 5 [facility] FRACTION INC INC ONLY BLOOD 41796 [facility] COUNT 5 [facility] COMPLETE INC INC AUTO&AUTO DIFRNTL WBC RADIOLOGI 31822 [facility] C EXAM 5 [facility] CHEST 2 INC INC VIEWS FRONTAL&[place] [address] [facility] ALL MAXILLOFA 5 MEDICAL CIAL W/O IMAGING CONTRAST ASS MATERIAL THERAPEUT 61500 [facility] IC 5 [facility] PROPHYLAC INC INC TIC/DX INJECTION SUBQ/IM DRUG SCR G0434 COMBINED COMBINED NOT 5 PHYSICIAN PHYSICIAN CHROMATOG S LA S LA RAPHIC; ANY NUMBER PT ENC RADIOLOGI 30562 [facility] EXAM 5 FOREIGN CHEST 2 EMERGENCY VIEWS PHYS FRONTAL&L ATERAL RADIOLOGI 88906 [facility] C EXAM 5 MEDICAL [facility] CHEST 2 IMAGING VIEWS ASS FRONTAL&[place] [address] [facility] MAXILLOFA 5 MEDICAL [place] CIAL W/[place] [address] [facility] HEAD/BRAI 5 MEDICAL [place] N W/[place] [address] [facility] INFUSION 4 [facility] THERAPY INC INC PROPHYLAX IS/DX EA HOUR BASIC 12179 [facility] METABOLIC 4 [facility] PANEL INC INC CALCIUM TOTAL COLLECTIO 14161 [facility] N VENOUS 4 [facility] BLOOD INC INC VENIPUNCT URE IAADI 63693 [facility] B[facility] INFLUENZA 4 [facility] B VIRUS INC INC IAADI 47162 [facility] B[facility] INFFLUENZ 4 [facility] [place] [address] [facility] INFUSION 4 [facility] THERAPY/P INC INC ROPHYLAXI S /DX 1ST TO 1 HR BLOOD 64537 [facility] COUNT 4 [facility] COMPLETE INC INC AUTO&AUTO DIFRNTL WBC RADIOLOGI 80897 [facility] C EXAM 4 [facility] CHEST 2 INC INC VIEWS FRONTAL&L ATERAL INJECTION J0696 ALEXA LIU 4 JEAN JEAN CEFTRIAXO NE SODIUM PER 250 MG DRUG SCR G0434 COMBINED COMBINED NOT 4 PHYSICIAN PHYSICIAN CHROMATOG S LA S LA RAPHIC; ANY NUMBER PT ENC Encounters Encounter Start End Date Code Location Performer Type Date OFFICE 19083 [facility] 7 PHYSICIAN T VISIT S GROUP 25 MINUTES [facility] T [facility]ICE 15741 [facility] 7 T [facility]ISIT 15 MINUTES H[facility] 6 6 [facility] T OFFICE 05277 [facility] 6 PHYSICIAN T NEW 60 S GROUP MINUTES [facility] EMERGENCY 30507 [facility] YEN DEPT 6 6 PHYSICIAN VISIT S, PLLC HIGH SEVERITY& THREAT FUNCJ EMERGENCY 35834 [facility] 6 6 [facility] T VISIT HIGH/URGE NT SEVERITY OFFICE 74156 [facility] RIOS JR OUTPATIEN 6 6 [facility] 20 HOSPITAL MINUTES P OFFICE 36280 ALEXA LIU OUTPATIEN 6 6 JEAN JEAN T VISIT 15 MINUTES OFFICE 31701 [facility] SCHULSTAD OUTPATIEN 6 6 PHYSICIAN CAM T NEW 30 S GROUP MINUTES EMERGENCY 71130 [facility] YEN 6 6 PHYSICIAN JADE [facility] MODERATE SEVERITY EMERGENCY 31293 [facility] 6 6 [facility] DEPART[facility] INC T VISIT LIMITED/M INOR PROB HOSPITAL [facility] - 6 6 [facility] OUTPATIEN INC T OFFICE 36176 ALEXA LIU OUTPATIDAPHNEY 5 5 JEAN JEAN T VISIT 15 MINUTES EMERGENCY 44290 [facility] 5 5 [facility] DEPART[facility] INC T VISIT MODERATE SEVERITY HOSPITAL [facility] - 5 5 [facility] OUTPATIEN INC T EMERGENCY 58866 [facility] YEN DEPT 5 5 PHYSICIAN JADE VISIT S, PLLC HIGH SEVERITY& THREAT FUNCJ OFFICE 77816 ALEXA LIU OUTPATIDAPHNEY 5 5 JEAN JEAN T VISIT 15 MINUTES OFFICE [address] OUTPATIEN 5 5 [facility] 15 MINUTES OFFICE 05303 [facility] MENDEZ OUTPATIEN 5 5 PHYSICIAN KYRA T VISIT S GROUP 15 MINUTES OFFICE 22513 [facility] MENDEZ OUTPATIEN 5 5 PHYSICIAN [place]RA T VISIT S GROUP 15 MINUTES HOSPITAL [facility] - 5 5 [facility] OUTPATIEN INC T OFFICE 78277 [facility] MENDEZ OUTPATIEN 5 5 PHYSICIAN KYRA T VISIT S GROUP 15 MINUTES EMERGENCY 74422 [facility] OSMAN 5 5 PHYSICIAN VINCE [facility]MEN [facility], [facility] VISIT MODERATE SEVERITY HOSPITAL [facility] - 5 5 [facility] OUTPATIEN INC T EMERGENCY 73765 [facility] 5 5 [facility] T VISIT LOW/MODER SEVERITY OFFICE 33465 [facility] ANDREA BENTLEY 5 5 PHYSICIAN KYRA T NEW 20 S GROUP MINUTES EMERGENCY 57404 [facility] 5 5 [facility] EMERGENCY T VISIT PHYS MODERATE SEVERITY HOSPITAL [facility] - 5 5 [facility] OUTPATIEN INC T HOSPITAL [facility] - 5 5 [facility] OUTPATIEN INC T EMERGENCY 54758 [facility] YEN 5 5 [facility] T VISIT P MODERATE SEVERITY EMERGENCY 85223 [facility] 5 5 [facility] T VISIT LOW/MODER SEVERITY EMERGENCY 09778 [facility] MANNING 4 4 [facility] T VISIT P LOW/MODER SEVERITY EMERGENCY 06603 [facility] 4 4 [facility] T VISIT HIGH/URGE NT SEVERITY HOSPITAL [facility] - 4 4 [facility] OUTPATIEN [facility] T OFFICE 37958 ALEXA BENTLEY 4 4 JEAN JEAN T VISIT 15 MINUTES EMERGENCY 36037 [facility] YEN 2 2 [facility] T VISIT HIGH/URGE NT SEVERITY
--- OUTSIDE RECORDS SUMMARY | 2016-09-11 22:32 | External Medical Summary Rpt ---
Author Author , Organization [employer] Address Unknown Phone Unavailable Care Team Providers Care Email Deployment Specialist Name Role Phone MANNING VINCE, MANNING Unavailable [...] Unavailable YOVANA JADE, YOVANA Unavailable Unavailable JADE [facility] Unavailable Unavailable INC, [facility] Unavailable Unavailable HOSPITAL P, [facility], Unavailable Unavailable [facility] CLEMENTE JOHNIE, CLEMENTE JOHNIE Unavailable Unavailable [facility] MENDEZ KYRA, MENDEZ Unavailable Unavailable [facility] KATLIN JR, KATLIN JR Unavailable Unavailable KATLIN JR DWI, KATLIN Unavailable Unavailable JR DWI DAWSON VINCE, DAWSON Unavailable Unavailable V[facility] Unavailable Unavailable SERVICES, [facility] Un[facility]available [facility], [facility] SCHULSTAD CAM, Unavailable Unavailable [facility] COURTNEY, COURTNEY Unavailable Unavailable SANDOVAL, SANDOVAL Unavailable Unavailable [facility] Purpose Continuity of Care Document - 03-09-2012 through 2016 Problems Code Diagnosis DOS Provider Status R000 TACHYCARDIA 05-20-2016 [facility]NS[facility] INC R002 PALPITATION 05-20-2016 [facility] S [facility] GROUP R079 CHEST PAIN 05-20-2016 [facility] UNSPECIFIED PHYSICIANS GROUP I340 NONRHEUMATI 05-19-2016 [facility] INSUFFICIEN CY I361 NONRHEUMATI 05-19-2016 [facility] TRICUS[facility] INSUFFICIEN CY I371 NONRHEUMATI 05-19-2016 [facility] PULMONARY [facility] INSUFFICIEN CY J069 ACUTE UPPER 05-15-2016 [facility]PIRAT[facility] INFECTION UNSPECIFIED M545 LOW BACK 05-15-2016 [facility] PAIN [id number] OTHER LONG 05-14-2016 [facility] TERM PHYSICIANS CURRENT [place] DRUG THERAPY I10 ESSENTIAL 04-29-2016 [facility] PRIMARY PHYSICIANS HYPERTENSIO GROUP N I119 HYPERTENSIV 04-29-2016 [facility] DISEASE INC WITHOUT HEART FAILURE I209 ANGINA 04-29-2016 [facility] PECTORIS PHYSICIANS UNSPECIFIED GROUP Z8249 FAMILY HX 04-29-2016 [facility] ISCHEMIC PHYSICIANS HRT DZ OTH GROUP DZ CIRC SYSTEM B0089 OTHER 10-11-2015 [facility] P Z302 ENCOUNTER 10-11-2015 [facility] P ON [id number] PAIN IN 06-06-2015 ALEXA JEAN UNSPECIFIED SHOULDER N6489 OTHER 05-15-2015 [facility] SPECIFIED PHYSICIANS DISORDERS GROUP OF BREAST [...] SUBCUTANEOU S TISSUE UNS 470 DEVIATED 02-05-2015 [facility] NASAL PHYSICIANS SEPTUM GROUP 4739 UNSPECIFIED 02-05-2015 [facility] SINUSITIS PHYSICIANS GROUP 4779 ALLERGIC 02-05-2015 [facility] RHINITIS PHYSICIANS CAUSE GROUP UNSPECIFIED 4730 CHRONIC 01-08-2015 [facility] MAXILLARY PHYSICIANS SINUSITIS GROUP 7840 HEADACHE 01-08-2015 [facility] PHYS[facility]ANS GROUP 91365 OTHER 12-04-2014 [facility] DISEASES OF PHYSICIANS NASAL GROUP CAVITY AND SINUSES 4019 UNSPECIFIED 12-01-2014 [facility] ESSENTIAL [facility] [place] N 37039 UNSPECIFIED 12-01-2014 [facility] IBULAR JOINT DISORDERS 5259 UNSPECIFIED 12-01-2014 [facility] DISORDER [facility] TEETH&SUPPO INC RTING STRUCTURES V5869 LONG-TERM 10-31-2014 [facility] (CURRENT) PHYSICIANS USE OF LA OTHER MEDICATIONS 7862 COUGH 06-14-2014 [facility] 42826 HEMOPTYSIS 06-14-2014 [facility]PEC[facility]GENCY PHYS 486 PNEUMONIA, 06-13-2014 [facility] UNSPECIFIED INC 4139 OTHER AND 06-08-2014 [facility] P PECTORIS 4871 INFLUENZA 05-03-2014 [facility] WITH OTHER [facility] P MANIFESTATI ONS 74934 FEVER 05-03-2014 [facility] 4659 ACUTE URIS 05-02-2014 ALEXA JEAN OF UNSPECIFIED SITE 462 ACUTE 03-09-2012 [facility] Medications Na ND Rx [...] 10 2- 1- 00 06 TO ve NH 88 20 20 07 WN IL 50 [...] 17 17 00 E 6 05 PH NH AR OP MA CY 50 OF MC G CY SP NT RA HI Y AN A AL 59 03 04 12 30 00 HO Ac NH 76 -0 -0 0. 00 ME ti [...] 10 0- 4- 00 06 TO ve NH 88 20 20 07 WN IL 50 17 17 34 1 66 PH 30 AR MA MG CY TA OF BL ET CY NT HI AN A NH 00 02 03 21 6 00 HO Ac ED 60 -0 -1 .0 00 ME ti NI 35 9- 7- 00 06 TO ve SO 33 20 20 08 WN NE 71 17 17 11 5 5 40 PH AR MG MA CY TA BL OF ET CY NT HI AN A AL 59 02 03 12 30 00 HO Ac NH 76 -0 -1 0. 00 ME ti [...] 17 17 00 E 6 05 PH NH AR OP MA CY 50 OF MC G CY SP NT RA HI Y AN A AL 59 01 02 12 30 00 HO Ac NH 76 -0 -1 0. 00 ME ti [...] 07 WN ZA 93 17 17 89 NH 2 30 PH IN AR E MA [...] 10 6- 7- 00 06 TO ve NH 88 20 20 07 WN IL 50 [...] 16 17 00 E 6 05 PH NH AR OP MA CY 50 OF MC [...] Procedure DOS Code Location Performer Comment COLLECTIO 18961 [facility] N VENOUS 7 [facility] [place] [address] [facility] FREE 7 [facility] [place] [address] [facility] THYROID 7 [facility] STIMULATI INC INC NG HORMONE TSH ECG 32040 [facility] ROUTINE 7 [facility] ECG INC INC W/LEAST 12 LDS TRCG ONLY W/O I&R CV STRS 29611 [facility] TST 7 [facility] XERS&/OR INC INC RX CONT ECG TRCG ONLY ECHO 78367 MARIA ALEJANDRA SANDOVAL TTHRC R-T 7 MEDICAL 2D SERV W/WOM-MOD FOUNDATIO E COMPL N SPEC&COLR D DRUG TST G0477 COMBINED COMBINED PRESUMP;C 7 PHYSICIAN PHYSICIAN PBL BEING S LA S LA READ DC OPT OBV ONLY ECG 44124 [facility] ROUTINE 6 [facility] ECG INC INC W/LEAST 12 LDS TRCG ONLY W/O I&R COMPREHEN 79527 [facility] SIVE 6 [facility] METABOLIC INC INC PANEL CREATINE 61729 [facility] KINASE MB 6 [facility] FRACTION INC INC ONLY CREATINE 71007 [facility] KINASE 6 [facility] TOTAL INC INC ECG 82123 [facility] ROUTINE 6 [facility] ECG INC INC W/LEAST 12 LDS TRCG ONLY W/O I&[place] [address] [facility] TROPONIN 6 [facility] QUANTITAT INC INC CHENTE BLOOD 62491 [facility] COUNT 6 [facility] COMPLETE INC INC AUTO&AUTO DIFRNTL WBC RADIOLOGI 67821 [facility] C EXAM 6 MEDICAL CHEST 2 IMAGING VIEWS ASS FRONTAL&L ATERAL ECG 91405 [facility] DALAL JR ROUTINE 6 [facility] W/LEAST P 12 LDS I&R ONLY DRUG TST G0477 COMBINED COMBINED PRESUMP;C 6 PHYSICIAN PHYSICIAN PBL BEING S LA S LA READ DC OPT OBV ONLY DRUG SCR G0434 COMBINED COMBINED NOT 6 PHYSICIAN PHYSICIAN CHROMATOG S LA S LA RAPHIC; ANY NUMBER PT ENC INJ J0702 ALEXA LIU BETAMETHA 6 JEAN JEAN SONE ACETATE & PHOSPHATE 3 MG IAADI 39203 [facility] INFLUENZA 6 [facility] B VIRUS INC INC IAADI 99583 [facility] B[facility] INFFLUENZ 6 [facility] [place] [place] [address] COMBINED COMBINED FREE 5 PHYSICIAN PHYSICIAN THYROXINE S LA S LA COLLECTIO 52516 COMBINED COMBINED N VENOUS 5 PHYSICIAN PHYSICIAN BLOOD S LA S LA VENIPUNCT URE DRUG SCR G0434 COMBINED COMBINED NOT 5 PHYSICIAN PHYSICIAN CHROMATOG S LA S LA RAPHIC; ANY NUMBER PT ENC GENERAL 66209 COMBINED COMBINED HEALTH 5 PHYSICIAN [place] [address] COMBINED COMBINED TRIIODOTH 5 PHYSICIAN PHYSICIAN YRONINE S LA S LA T3 TOTAL TT3 25 57937 COMBINED COMBINED HYDROXY 5 PHYSICIAN PHYSICIAN INCLUDES S LA S LA FRACTIONS IF PERFORMED SEDIMENTA 12054 COMBINED COMBINED TION RATE 5 PHYSICIAN PHYSICIAN RBC S LA S LA NON-AUTOM ATED LIPID 17726 COMBINED COMBINED PANEL 5 PHYSICIAN PHYSICIAN S LA S LA ECG 40147 [facility] DALAL JR ROUTINE 5 [facility] W/LEAST P 12 LDS I&[place] [address] [facility] TROPONIN 5 [facility] QUANTITAT INC INC [place] CREATINE 26016 [facility] KINASE 5 [facility] TOTAL INC INC ECG 32826 [facility] ROUTINE 5 [facility] ECG INC INC W/LEAST 12 LDS TRCG ONLY W/O I&R COMPREHEN 25219 [facility] SIVE 5 [facility] METABOLIC INC INC PANEL CREATINE 62180 [facility] KINASE MB 5 [facility] FRACTION INC INC ONLY BLOOD 67486 [facility] COUNT 5 [facility] COMPLETE INC INC AUTO&AUTO DIFRNTL WBC RADIOLOGI 71597 [facility] C EXAM 5 [facility] CHEST 2 INC INC VIEWS FRONTAL&[place] [address] [facility] MAXILLOFA 5 MEDICAL CIAL W/O IMAGING CONTRAST ASS MATERIAL THERAPEUT 79113 [facility] IC 5 [facility] PROPHYLAC INC INC TIC/DX INJECTION SUBQ/IM DRUG SCR G0434 COMBINED COMBINED NOT 5 PHYSICIAN PHYSICIAN CHROMATOG S LA S LA RAPHIC; ANY NUMBER PT ENC RADIOLOGI 56220 [facility] EXAM 5 FOREIGN CHEST 2 EMERGENCY VIEWS PHYS FRONTAL&L ATERAL RADIOLOGI 80102 [facility] C EXAM 5 MEDICAL HUMBLE CHEST 2 IMAGING VIEWS ASS FRONTAL&[place] [address] [facility] MAXILLOFA 5 MEDICAL HUMBLE CIAL W/[place] [address] [facility] HEAD/BRAI 5 MEDICAL HUMBLE N W/[place] [address] [facility] INFUSION 4 [facility] THERAPY INC INC PROPHYLAX IS/DX EA HOUR BASIC 25714 [facility] METABOLIC 4 [facility] PANEL INC INC CALCIUM TOTAL COLLECTIO 05020 [facility] B[facility] N VENOUS 4 [facility] BLOOD INC INC VENIPUNCT URE IAADI 65634 [facility] B[facility] INFLUENZA 4 [facility] B VIRUS INC INC IAADI 88627 [facility] INFFLUENZ 4 [facility] [place] [place] [address] [facility] INFUSION 4 [facility] THERAPY/P INC INC ROPHYLAXI S /DX 1ST TO 1 HR BLOOD 59456 [facility] COUNT 4 [facility] COMPLETE INC INC AUTO&AUTO DIFRNTL WBC RADIOLOGI 92626 [facility] C EXAM 4 [facility] CHEST 2 INC INC VIEWS FRONTAL&L ATERAL INJECTION J0696 ALEXA LIU 4 JEAN JEAN CEFTRIAXO NE SODIUM PER 250 MG DRUG SCR G0434 COMBINED COMBINED NOT 4 PHYSICIAN PHYSICIAN CHROMATOG S LA S LA RAPHIC; ANY NUMBER PT ENC Encounters Encounter Start End Date Code Location Performer Type Date OFFICE [address] [facility] 7 PHYSICIAN T VISIT S GROUP 25 MINUTES [facility] 7 7 [facility] - 7 7 [facility] T [facility] 74604 [facility] LI[facility] 7 7 T VISIT 15 MINUTES HOSPITAL [facility] - 6 6 [facility] T OFFICE [address] [facility] 6 6 PHYSICIAN T NEW 60 S GROUP MINUTES HOSPITAL [facility] - 6 6 [facility] EMERGENCY 49747 R[facility] YEN DEPT 6 6 PHYSICIAN VISIT S, PLLC HIGH SEVERITY& THREAT FUNCJ EMERGENCY 18330 [facility] 6 6 [facility] T VISIT HIGH/URGE NT SEVERITY OFFICE 83947 [facility] RIOS JR OUTPATIEN 6 6 [facility] 20 HOSPITAL MINUTES P OFFICE 16964 ALEXA LIU OUTPATIEN 6 6 JEAN JEAN T VISIT 15 MINUTES OFFICE 78664 [facility] OUTPATIEN 6 6 PHYSICIAN CAM T NEW 30 S GROUP MINUTES EMERGENCY 46008 [facility] YEN 6 6 PHYSICIAN JADE DE[facility]MEN S, [facility] VISIT MODERATE SEVERITY EMERGENCY 93045 [facility] 6 6 [facility] DEPARTMEN INC T VISIT LIMITED/M INOR PROB HOSPITAL [facility] - 6 6 [facility] OUTPATIEN INC T OFFICE 69640 ALEXA LIU OUTPATIDAPHNEY 5 5 JEAN JEAN T VISIT 15 MINUTES EMERGENCY 61295 [facility] 5 5 [facility] DEPARTMEN INC T VISIT MODERATE SEVERITY HOSPITAL [facility] - 5 5 [facility] OUTPATIEN INC T EMERGENCY 79257 RAL[facility] YEN DEPT 5 5 PHYSICIAN JADE VISIT S, PLLC HIGH SEVERITY& THREAT FUNCJ OFFICE 66249 ALEXA LIU OUTPATIDAPHNEY 5 5 JEAN JEAN T VISIT 15 MINUTES OFFICE [address] OUTPATIEN 5 5 [facility] VISIT HOSPITAL 15 MINUTES OFFICE 70736 [facility] MENDEZ OUTPATIEN 5 5 PHYSICIAN KYRA T VISIT S GROUP 15 MINUTES OFFICE 33041 [facility] MENDEZ OUTPATIEN 5 5 PHYSICIAN KYRA T VISIT S GROUP 15 MINUTES HOSPITAL [facility] - 5 5 [facility] OUTPATIEN INC T OFFICE 66318 [facility] MENDEZ OUTPATIEN 5 5 PHYSICIAN KYRA T VISIT S GROUP 15 MINUTES EMERGENCY 12650 RALPH OSMAN 5 5 PHYSICIAN VINCE DEPARTMEN S, [facility] T VISIT MODERATE SEVERITY HOSPITAL [facility] - 5 5 [facility] OUTPATIEN INC T EMERGENCY 98255 [facility] 5 5 [facility] T VISIT LOW/MODER SEVERITY OFFICE 00029 [facility] ANDREA BENTLEY 5 5 PHYSICIAN KYRA T NEW 20 S GROUP MINUTES EMERGENCY 77701 [facility] 5 5 [facility] EMERGENC[facility] T VISIT PHYS MODERATE SEVERITY HOSPITAL [facility] - 5 5 [facility] OUTPATIEN INC T HOSPITAL [facility] - 5 5 [facility] OUTPATIEN INC T EMERGENCY 04921 [facility] YEN 5 5 [facility] T VISIT P MODERATE SEVERITY EMERGENCY 73210 [facility] 5 5 [facility] T VISIT LOW/MODER SEVERITY EMERGENCY 84790 [facility] MANNING 4 4 [facility] T VISIT P LOW/MODER SEVERITY EMERGENCY 47667 [facility] 4 4 [facility] T VISIT HIGH/URGE NT SEVERITY HOSPITAL [facility] - 4 4 [facility] T OFFICE 49633 ALEXA BENTLEY 4 4 JEAN JEAN T VISIT 15 MINUTES EMERGENCY 54937 BRANDON YEN 2 2 EMERGENCY [facility] T VISIT HIGH/URGE NT SEVERITY
--- OUTSIDE RECORDS SUMMARY | 2016-09-11 22:32 | External Medical Summary Rpt ---
Author Author [employer] Roman, [employer] Organization [employer] Address Unknown Phone Unavailable
[2016-09-11 22:33] LABS: HEMOGLOBIN 16.1 g/dL (14.1-18.0); LYMPH # 4.2 K/mm3 (0.7-4.5); LYMPH % 46.6 % (10-50)
[2016-09-11 22:53] LABS: FREE THYROXIN INDEX 5.7 ug/dl (5.93-13.13)
[2016-09-11 22:59] LABS: BUN 11 mg/dL (7-18); GFR (ESTIMATED) 59 ML/MIN (>60)
--- NOTE | 2016-09-11 22:59 | Emergency Room Report ---
History of Present Illness Time Seen by [id number] Presenting Problem in Triage Pt arrived:Walked Presenting Problem:C/O LEFT SIDED CHEST PAIN ALL DAY WHICH RADIATES TO BACK UNDER SHOULDER BLADE. WORSE WITH DEEP RESP. DENIES N/V OR DIAPHORESIS OR SOB. 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 N Clinical Suspician of Infection? N Mental Status: 1 - Regular (Normal Baseline) Sepsis Risk:Low Sepsis Risk Have you (or family members/close friends) recently traveled outside the [place]? N If Yes, where/when: Have you had exposure to infectious disease within the past month? N TB? Other? Specify: Source patient, RN notes reviewed, RN/MD Exam Limitations no limitations Comment This is a 45-year-old gentleman arriving to the emergency room with pleuritic type chest pain, sudden onset earlier this morning, associated with palpitations. Patient has any shortness of breath. Has not the fact he runs 2-3 miles each day, without any distress. Patient has had similar episodes in April/in May, and so Dr. Li. Stress test obtained at that time was normal, patient was advised to return to his PCP, as his chest pain was noncardiac. Noticeably he was advised to quit drinking soda, as he was abusing 4 -5 drinks of soda per day. It appears that the patient has ignored this recommendation, as she continues to this date drink some amount of sodas per day. ALLERGIES Coded Allergies: No Known Allergies (05/11/15) Home Medications Reported Medications ALPRAZOLAM (Alprazolam 0.5MG) 0.5 MG PO BID Fluticasone Propionate (Flonase 50 Mcg Nasal [place]) 1 SPRAY NA BID #16 Lisinopril 30 MG PO DAILY #30 History Medical History General CAD? No Angina: Yes [place]: No Hypertension? Yes Hyperlipidemia? No CHF? No DVT? No PE? No COPD? No Asthma? No Anemia? No GERD? No Gastric ulcers? No GI Bleed? No Hernia? No Thyroid Problems? No Hypothyroidism? No CVA? No Seizures? No Diabetes? No Insulin Dependent: No Insulin Pump: No Home FSBS? No Renal Insuffiency? No End Stage Renal Disease? No UTI? No Stones? No BPH? No GB Disease: No Nephritic Syndrome? No Asplenia? No Hepatitis? No Sickle Cell Disease? No Arthritis? No Migraines? No Cataracts? No Glaucoma? No MRSA? Yes HIV? No TB? No Anxiety? No Depression? No Cancer? No More? No Immunization Hx DT/Tetanus 5-10 YRS Flu NEVER Pneumonia < 1 YR AGO Surgical Hx Previous Surgery?Y ORAL SURGERY Family History Family Hx Diabetes No CAD No Hypertension Yes Hyperlipidemia Yes Cancer Yes TB No Social History Smoking Hx Smoker: Never Smoker Tobacco: No Alcohol Alcohol: No Review of Systems All Other Systems Reviewed and Negative Cardiovascular chest pain, palpitations Physical Exam Vital Signs Vital Signs Date Time Temp Pulse Resp B/P Pulse O2 O2 Flow FiO2 Ox Delivery Rate 09/11 2324 87 20 158/68 99 09/11 2255 66 20 155/116 100 09/11 2222 92 09/11 2208 97.3 64 18 143/99 99 General Appearance normal appearance, WD/WN, no apparent distress Neck normal inspection, non-tender, supple, full range of motion Respiratory Status Yes: trachea midline, chest symmetrical, tender on palpation (pain worse with deep inspirati). No: respiratory distress. Lung Sounds bilateral: normal breath sounds, lungs clear. 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 No Comment Upon reevaluation patient appears medically stable, in no acute distress, clinically improving. Advised patient again to immediately discontinue drinking sodas. He'll follow-up with his PCP early next week, if any recurrent symptoms. Described monitor continues to show numerous PVCs which are clear a sign of excessive caffeine intake, most clearly related to his habit of drinking 4-5 sodas per day. Results/Orders Laboratory Tests 09/11/165: TSH 1.84, Free T4 Index 5.7 L, Thyroxine (T4) 7.0, T3 Uptake 33 09/11/162214: B-Natriuretic Peptide 23 09/11/162214: Amylase 57, Lipase 163 09/11/162214: Sodium 141, Potassium 3.5, Chloride 105, Carbon Dioxide 26, BUN 11, Creatinine 1.3, Estimated Creat Clear 80, Estimated GFR (MDRD) 59, Glucose 96, Calcium 9.0, Total Bilirubin 0.6, AST 22, ALT 47, Alkaline Phosphatase 73, Creatine Kinase 215, CK and CKMB Interp 1.3, Troponin I < 0.02, Total Protein 7.4, Albumin 3.7, Globulin 3.7 H, Albumin/Globulin Ratio 1.0 L, D-Dimer < 100, WBC 9.0, RBC 5.00 , Hgb 16.1, Hct 46.1, MCV 92.2, RDW 13.0, Plt Count 249, MPV 7.3 L, Gran % 47.2 , Gran # 4.2, Lymphocytes % 46.6, Monocytes % 4.9, Eosinophils % 0.8, Basophils % 0.5, Lymphocytes # 4.2, Monocytes # 0.4, Eosinophils # 0.1, Basophils # 0.0, PUBS MCHC 34.8, MCH 32.1 H Current Medication Orders Sig/Rimma Start time Last Medication Dose Route Stop Time Status Admin Aspirin 324 MG ONCE ONE 09/11 2229 DC 09/11 PO 09/11 Aspirin 0 .STK-MED ONE 09/11 2216 DC .ROUTE Sodium Chloride 10 ML PRN PRN 09/11 2214 DCD IV 09/13 2211 Orders Procedure Date/time Status THYROID PANEL 2 (WITH TSH) 09/11 2212 Complete LIPASE 09/11 2212 Complete AMYLASE 09/11 2212 Complete 12 LEAD EKG-BESSON (INITIAL) 09/12 2211 Active ELECTROCARDIOGRAM REQUEST 09/12 2211 Active CHEST-PORTABLE 09/12 2211 Active IV SALINE LOCK 09/12 2211 Active OXYGEN PER NURSE 09/12 2211 Active ART CRITIC 09/12 2211 Active TROPONIN I 09/12 2211 Complete D-DIMER 09/12 2211 Complete CPK 09/12 2211 Complete COMPLETE METABOLIC PANEL 05/04 2212 Complete CKMB 09/12 2211 Complete CBC WITH AUTO DIFF 09/12 2211 Complete BRAIN NATRIURETIC PEPTIDE 09/12 2211 Complete CM/EKG CM/security 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 of ischemic chgs, no ectopy, normal QRS, normal OK, no EKG for comparison, non-spec. ST/Twave chgs, ST elevation, ST depression, LBBB, RBBB, ectopy, abnormal Q waves XRAY/CT/US XRAY/CT/US XRAY chest XR interpretation by reviewed by me Xray Results no infiltrates, normal heart size, normal lung inflation melanie Departure Departure Time of Disposition 2316 Disposition DC Home or Self Care(routine) Clinical Impression Primary Impression: Palpitations Condition STABLE Referrals Jam WARD,Olaf Anderson (Family) Patient Instructions DI for Atypical Chest Pain, DI for Palpitations Additional Instructions Please take the medications prescribed as directed. Follow-up with your family physician if no better on Thursday. Discharge Counseling Counseled pt/family regarding diagnosis, test results, medications/RX, home care, follow up needs Comment Please take the medications prescribed as directed. Follow-up with your family physician if no better on Thursday. ED Critical Care Critical Care No at 0126
--- NOTE | 2016-09-11 22:59 | Emergency Room Report ---
History of Present Illness Time Seen by [id number] Presenting Problem in Triage Pt arrived:Walked Presenting Problem:C/O LEFT SIDED CHEST PAIN ALL DAY WHICH RADIATES TO BACK UNDER SHOULDER BLADE. WORSE WITH DEEP RESP. DENIES N/V OR DIAPHORESIS OR SOB. 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 N Clinical Suspician of Infection? N Mental Status: 1 - Regular (Normal Baseline) Sepsis Risk:Low Sepsis Risk Have you (or family members/close friends) recently traveled outside the [place]? N If Yes, where/when: Have you had exposure to infectious disease within the past month? N TB? Other? Specify: Source patient, RN notes reviewed, RN/MD Exam Limitations no limitations Comment This is a 45-year-old gentleman arriving to the emergency room with pleuritic type chest pain, sudden onset earlier this morning, associated with palpitations. Patient has any shortness of breath. Has not the fact he runs 2-3 miles each day, without any distress. Patient has had similar episodes in April/in May, and so Dr. Li. Stress test obtained at that time was normal, patient was advised to return to his PCP, as his chest pain was noncardiac. Noticeably he was advised to quit drinking soda, as he was abusing 4 -5 drinks of soda per day. It appears that the patient has ignored this recommendation, as she continues to this date drink some amount of sodas per day. ALLERGIES Coded Allergies: No Known Allergies (05/11/15) Home Medications Reported Medications ALPRAZOLAM (Alprazolam 0.5MG) 0.5 MG PO BID Fluticasone Propionate (Flonase 50 Mcg Nasal [place]) 1 SPRAY NA BID #16 Lisinopril 30 MG PO DAILY #30 History Medical History General CAD? No Angina: Yes CT: No Hypertension? Yes Hyperlipidemia? No CHF? No DVT? No PE? No COPD? No Asthma? No Anemia? No GERD? No Gastric ulcers? No GI Bleed? No Hernia? No Thyroid Problems? No Hypothyroidism? No CVA? No Seizures? No Diabetes? No Insulin Dependent: No Insulin Pump: No Home FSBS? No Renal Insuffiency? No End Stage Renal Disease? No UTI? No Stones? No BPH? No GB Disease: No Nephritic Syndrome? No Asplenia? No Hepatitis? No Sickle Cell Disease? No Arthritis? No Migraines? No Cataracts? No Glaucoma? No MRSA? Yes HIV? No TB? No Anxiety? No Depression? No Cancer? No More? No Immunization Hx DT/Tetanus 5-10 YRS Flu NEVER Pneumonia < 1 YR AGO Surgical Hx Previous Surgery?Y ORAL SURGERY Family History Family Hx Diabetes No CAD No Hypertension Yes Hyperlipidemia Yes Cancer Yes TB No Social History Smoking Hx Smoker: Never Smoker Tobacco: No Alcohol Alcohol: No Review of Systems All Other Systems Reviewed and Negative Cardiovascular chest pain, palpitations Physical Exam Vital Signs Vital Signs Date Time Temp Pulse Resp B/P Pulse O2 O2 Flow FiO2 Ox Delivery Rate 09/11 2324 87 20 158/68 99 09/11 2255 66 20 155/116 100 09/11 2222 92 09/11 2208 97.3 64 18 143/99 99 General Appearance normal appearance, WD/WN, no apparent distress Neck normal inspection, non-tender, supple, full range of motion Respiratory Status Yes: trachea midline, chest symmetrical, tender on palpation (pain worse with deep inspirati). No: respiratory distress. Lung Sounds bilateral: normal breath sounds, lungs clear. 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 No Comment Upon reevaluation patient appears medically stable, in no acute distress, clinically improving. Advised patient again to immediately discontinue drinking sodas. He'll follow-up with his PCP early next week, if any recurrent symptoms. Described monitor continues to show numerous PVCs which are clear a sign of excessive caffeine intake, most clearly related to his habit of drinking 4-5 sodas per day. Results/Orders Laboratory Tests 09/11/165: TSH 1.84, Free T4 Index 5.7 L, Thyroxine (T4) 7.0, T3 Uptake 33 09/11/162214: B-Natriuretic Peptide 23 09/11/162214: Amylase 57, Lipase 163 09/11/162214: Sodium 141, Potassium 3.5, Chloride 105, Carbon Dioxide 26, BUN 11, Creatinine 1.3, Estimated Creat Clear 80, Estimated GFR (MDRD) 59, Glucose 96, Calcium 9.0, Total Bilirubin 0.6, AST 22, ALT 47, Alkaline Phosphatase 73, Creatine Kinase 215, CK and CKMB Interp 1.3, Troponin I < 0.02, Total Protein 7.4, Albumin 3.7, Globulin 3.7 H, Albumin/Globulin Ratio 1.0 L, D-Dimer < 100, WBC 9.0, RBC 5.00 , Hgb 16.1, Hct 46.1, MCV 92.2, RDW 13.0, Plt Count 249, MPV 7.3 L, Gran % 47.2 , Gran # 4.2, Lymphocytes % 46.6, Monocytes % 4.9, Eosinophils % 0.8, Basophils % 0.5, Lymphocytes # 4.2, Monocytes # 0.4, Eosinophils # 0.1, Basophils # 0.0, PUBS MCHC 34.8, MCH 32.1 H Current Medication Orders Sig/Rimma Start time Last Medication Dose Route Stop Time Status Admin Aspirin 324 MG ONCE ONE 09/11 2229 DC 09/11 PO 09/11 Aspirin 0 .STK-MED ONE 09/11 2216 DC .ROUTE Sodium Chloride 10 ML PRN PRN 09/11 2214 DCD IV 09/13 2211 Orders Procedure Date/time Status THYROID PANEL 2 (WITH TSH) 09/11 2212 Complete LIPASE 09/11 2212 Complete AMYLASE 09/11 2212 Complete 12 LEAD EKG-BESSON (INITIAL) 09/12 2211 Active ELECTROCARDIOGRAM REQUEST 09/12 2211 Active CHEST-PORTABLE 09/12 2211 Active IV SALINE LOCK 09/12 2211 Active OXYGEN PER NURSE 09/12 2211 Active BUSINESS SYSTEMS ADVISOR 09/12 2211 Active TROPONIN I 09/12 2211 Complete D-DIMER 09/12 2211 Complete CPK 09/12 2211 Complete COMPLETE METABOLIC PANEL 05/04 2212 Complete CKMB 09/12 2211 Complete CBC WITH AUTO DIFF 09/12 2211 Complete BRAIN NATRIURETIC PEPTIDE 09/12 2211 Complete CM/EKG 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 of ischemic chgs, no ectopy, normal QRS, normal MA, no EKG for comparison, non-spec. ST/Twave chgs, ST elevation, ST depression, LBBB, RBBB, ectopy, abnormal Q waves XRAY/CT/US XRAY/CT/US XRAY chest XR interpretation by reviewed by me Xray Results no infiltrates, normal heart size, normal lung inflation melanie Departure Departure Time of Disposition 2316 Disposition DC Home or Self Care(routine) Clinical Impression Primary Impression: Palpitations Condition STABLE Referrals Jam WARD,Olaf Anderson (Family) Patient Instructions DI for Atypical Chest Pain, DI for Palpitations Additional Instructions Please take the medications prescribed as directed. Follow-up with your family physician if no better on Thursday. Discharge Counseling Counseled pt/family regarding diagnosis, test results, medications/RX, home care, follow up needs Comment Please take the medications prescribed as directed. Follow-up with your family physician if no better on Thursday. ED Critical Care Critical Care No at [id number]
[2016-09-11 23:24] VITALS: BP 158/68
--- NOTE | 2016-09-12 05:24 | RADIOLOGY REPORT PS360 ---
CHEST-PORTABLE HISTORY: chest pain ORDERING PHYSICIAN: Jose Shields MD PATIENT AGE: 45 years COMPARISON: 04/23/2016 FINDINGS: The cardiomediastinal silhouette and pulmonary vascularity are within normal limits. The lungs are clear without infiltrates, suspicious nodules, or pleural effusions. No acute bony abnormalities. IMPRESSION: Negative chest, no acute finding
== END 2016-09-11 23:25 | disposition home or self-care (01) ==
LOC: ER 22:08
PROVIDERS: Emergency Medicine
DX: R00.2 Palpitations (principal); I10 Essential (primary) hypertension; R07.9 Chest pain, unspecified

== ENCOUNTER → 2017-04-24 | Outpatient (CLI) | payer MEDICAID ==
[~2017-04-24] MED LIST changes: +TESSALON PERLE100 M1 PO; +ZITHROMAX Z-PA250 M2 PO
[2017-04-24 19:13] LABS: AMPHETAMINES/METAMPHETAMINES NEGATIVE ng/mL (<1000)
== END ==
LOC: LAB 17:47
PROVIDERS: Emergency Medicine
DX: Z79.899 Other long term (current) drug therapy (principal)